=== PATIENT | female | born 1970 | race Caucasian/White ===

== ENCOUNTER 2018-03-01 20:19 | Emergency (ER) | payer MEDICAID ==
--- NOTE | 2018-03-01 21:20 | C.PDOC ---
History Of Present Illness 47 year old female presents to the ED for evaluation of headache for 2 days. Patient reports having similar symptoms, concerned the headaches are associated with high blood pressure. In the ED blood pressure was measured, 108/72. Denies fever, nausea, vomiting, numbness, weakness, photophobia, vision changes, and any other associated symptoms. Time Seen by Provider: 03/01/18 20:27 Chief Complaint (Nursing): Headache History Per: Patient History/Exam Limitations: no limitations Onset/Duration Of Symptoms: Days Current Symptoms Are (Timing): Still Present Past Medical History Reviewed: Historical Data, Nursing Documentation, Vital Signs Vital Signs: Last Vital Signs Temp 98.4 F 03/01/18 20:25 Pulse 90 03/01/18 20:25 Resp 20 03/01/18 20:25 BP 108/72 03/01/18 20:25 Pulse Ox 99 03/01/18 20:25 Family History: States: Unknown Family Hx - Social History Hx Alcohol Use: No Hx Substance Use: No Review Of Systems Constitutional: Negative for: Fever Eyes: Negative for: Vision Change Gastrointestinal: Negative for: Nausea, Vomiting Neurological: Positive for: Headache Physical Exam - Physical Exam Appears: Well, Non-toxic, No Acute Distress Skin: Normal Color, Warm, Dry, No Rash Head: Atraumatic, Normacephalic, Other (No temporal artery tenderness) Eye(s): bilateral: Normal Inspection, PERRL, EOMI Ear(s): Bilateral: Normal Nose: Normal, Other ((+) Maxillary sinus jennifer) Oral Mucosa: Moist Throat: Normal, No Erythema, No Exudate Neck: Normal ROM, Supple Chest: Symmetrical, No Tenderness Cardiovascular: Rhythm Regular Respiratory: Normal Breath Sounds, No Rales, No Rhonchi, No Stridor, No Wheezing Gastrointestinal/Abdominal: Soft, No Tenderness Extremity: Normal ROM, No Swelling Neurological/Psych: Oriented x3, Normal Speech, Normal Motor, Normal Sensation Gait: Steady ED Course And Treatment O2 Sat by Pulse Oximetry: 99 (RA) Pulse Ox Interpretation: Normal Medical Decision Making Medical Decision Making: Plan: -Motrin Claritin Prednisone Finger stick Finger stick is 143. On re-exam, the patient reports improvement of symptoms. Ambulatory in the ED with steady gait. Lungs are CTA, heart is RRR, abdomen is soft, non-tender and the patient is tolerating PO well. Follow up with the medical doctor/clinic within 1-2 days. Return if worsened. Disposition - Disposition Referrals: [facility] [Outside] Disposition: HOME/ ROUTINE Disposition Time: 22:06 Condition: STABLE Additional Instructions: Follow up with the medical doctor/clinic within 1-2 days. Return if worsened. 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 - Scribe Statement The provider has reviewed the documentation as recorded by the Scribe (Iman Alonso) All medical record entries made by the Scribe were at my direction and personally dictated by me. I have reviewed the chart and agree that the record accurately reflects my personal performance of the history, physical exam, medical decision making, and the department course for this patient. I have also personally directed, reviewed, and agree with the discharge instructions and disposition.
[2018-03-02 01:14] VITALS: BP 108/72; PULSE 90; RESP 20; TEMP 98.4; O2SAT 99
== END 2018-03-01 22:15 | disposition home or self-care (01) ==
LOC: C.ER 20:19
DX: R51 Headache (principal)

== ENCOUNTER 2018-08-26 12:19 | Emergency (ER) | payer MEDICAID ==
[2018-08-26 12:33] VITALS: PULSE 78; TEMP 97.9; O2SAT 98
--- NOTE | 2018-08-26 13:21 | C.PDOC ---
History Of Present Illness Patient is a 47 year old female who presents to the ED c/o right knee pain for the past 2 months. Patient has been taking ibuprofen with little improvement and reports that it is painful to bear weight and walks with a limp. Patient has not seen her PMD and is in the ED requesting evaluation. Patient denies any trauma, injury, recent travel, calf pain, CP, weakness, dizziness, numbness, or tingling of extremities. Chief Complaint (Nursing): Lower Extremity Problem/Injury History Per: Patient History/Exam Limitations: no limitations Onset/Duration Of Symptoms: Days (2 months) Current Symptoms Are (Timing): Still Present Recent travel outside of the [place]: No Additional History Per: Patient Past Medical History Reviewed: Historical Data, Nursing Documentation, Vital Signs Vital Signs: Last Vital Signs Temp 97.9 F 08/26/18 12:29 Pulse 78 08/26/18 12:29 Resp 20 08/26/18 12:29 BP 117/78 08/26/18 12:29 Pulse Ox 98 08/26/18 12:29 Primary Care Provider: Non [facility] Provider, - Medical History PMH: No Chronic Diseases Surgical History: No Surg Hx Family History: States: Unknown Family Hx - Social History Hx Alcohol Use: No Hx Substance Use: No - Immunization History Hx Tetanus Toxoid Vaccination: No Hx Influenza Vaccination: No Hx Pneumococcal Vaccination: No Review Of Systems Cardiovascular: Negative for: Chest Pain Musculoskeletal: Positive for: Leg Pain (right knee pain) Neurological: Negative for: Weakness, Numbness, Dizziness, Other (tingling of extremities) Physical Exam - Physical Exam Appears: Non-toxic, No Acute Distress Skin: Normal Color, Warm, Dry Head: Atraumatic, Normacephalic Neck: Normal ROM, Supple Chest: Symmetrical Cardiovascular: Rhythm Regular Respiratory: Normal Breath Sounds, No Accessory Muscle Use, No Wheezing Gastrointestinal/Abdominal: Soft, No Tenderness Back: No CVA Tenderness Extremity: Tenderness (tenderness to palpation medial knee joint. No ecchymosis, erythema, or edema), No Pedal Edema, No Calf Tenderness, Capillary Refill (less than 2 seconds), No Deformity, No Swelling Extremity: Bilateral: Atraumatic, Normal Color And Temperature Neurological/Psych: Oriented x3, Normal Speech, Normal Cognition, Normal Motor, Normal Sensation Gait: Steady ED Course And Treatment O2 Sat by Pulse Oximetry: 98 (on RA) Pulse Ox Interpretation: Normal - Other Rad Xray Rt Knee X-Ray: Viewed By Me, Read By Radiologist Interpretation: PROCEDURE: Right Knee Radiographs. Three views. HISTORY: pain. COMPARISON: None available. FINDINGS: BONES: No acute displaced fracture. JOINTS: No dislocation. JOINT EFFUSION: No significant joint effusion. OTHER FINDINGS: None. IMPRESSION: No acute displaced fracture, dislocation, or significant joint effusion identified. If symptoms persist, or if there is continued clinical concern, x-ray follow-up in 7-10 days should be considered. Medical Decision Making Medical Decision Making: Plan: Xray RT Knee ordered Toradol 30mg IM given Reviewed results with patient- unremarkable Patient advised to continue Meds as prescribed Rest, Ice, Compression, and Elevation Follow up with PMD for possible MRI Return to ED if symptoms worsen Patient verbalizes understanding and is in agreement with plan. Patient is stable for discharge Disposition Counseled Patient/Family Regarding: Studies Performed, Diagnosis, Need For Followup, Rx Given - Disposition Referrals: Taylor Keene MD [Staff Provider] - Disposition: HOME/ ROUTINE Disposition Time: 13:27 Condition: STABLE Additional Instructions: Continue Meds as prescribed Rest, Ice, Compression, and Elevation Follow up with PMD for possible MRI Return to ED if symptoms worsen Prescriptions: Lidocaine 5% [Lidoderm] 1 ea TD DAILY PRN #30 patch PRN Reason: Pain, Moderate (4-7) Naproxen [Naprosyn] 500 mg PO BID #30 tablet Instructions: Knee Pain (DC) Forms: [facility] ([place]) - Clinical Impression Clinical Impression: Knee pain, right - 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 - Scribe Statement The provider has reviewed the documentation as recorded by the Renita Rosenberg All medical record entries made by the Bryanibpatience were at my direction and personally dictated by me. I have reviewed the chart and agree that the record accurately reflects my personal performance of the history, physical exam, medical decision making, and the department course for this patient. I have also personally directed, reviewed, and agree with the discharge instructions and disposition.
[2018-08-26] MEDS ORDERED: Lidocaine 5% Patch TD STA (13:26)
--- NOTE | 2018-08-26 13:26 | C.PDOC ---
Chief Complaint (Nursing): Lower Extremity Problem/Injury Past Medical History Vital Signs: Last Vital Signs Temp 97.9 F 08/26/18 12:29 Pulse 78 08/26/18 12:29 Resp 20 08/26/18 12:29 BP 117/78 08/26/18 12:29 Pulse Ox 98 08/26/18 12:29 Primary Care Provider: Non [facility] Provider, Family History: States: Unknown Family Hx - Social History Hx Alcohol Use: No Hx Substance Use: No - Immunization History Hx Tetanus Toxoid Vaccination: No Hx Influenza Vaccination: No Hx Pneumococcal Vaccination: No ED Course And Treatment O2 Sat by Pulse Oximetry: 98 Disposition - Disposition
[2018-08-26] MEDS ORDERED: Lidocaine 5% Patch TD ONE (13:31)
--- NOTE | 2018-08-26 13:38 | RAD ---
PROCEDURE: Right Knee Radiographs. Three views. HISTORY: pain COMPARISON: None available. FINDINGS: BONES: No acute displaced fracture. JOINTS: No dislocation. JOINT EFFUSION: No significant joint effusion. OTHER FINDINGS: None. IMPRESSION: No acute displaced fracture, dislocation, or significant joint effusion identified. If symptoms persist, or if there is continued clinical concern, x-ray follow-up in 7-10 days should be considered.
[2018-08-26 13:42] VITALS: BP 112/72; RESP 18
== END 2018-08-26 13:48 | disposition home or self-care (01) ==
LOC: C.ER 12:19
DX: M25.561 Pain in right knee (principal)
CPT/HCPCS: 73562; 81025; 96372; 99285; J1885